=== PATIENT | female | born 1995 | race African-American/Black ===

== ENCOUNTER 2018-09-18 21:17 | Emergency (ER) | payer OTHER ==
[~2018-09-18] VITALS: Ht 162.6 cm; Wt 81.7 kg
[~2018-09-18 21:17] MED LIST: IBUPROFEN 800800 MG PO; NAPROSYN500 MG PO; NOHOMEMEDICATIONS
[2018-09-18 22:03] LABS: INFLUENZA A ANTIGEN None Detected (None Detect); INFLUENZA B ANTIGEN None Detected (None Detect)
[2018-09-18] MEDS ORDERED: AUGMENTIN 875-1 EACH PO (22:15)
[2018-09-18 22:25] VITALS: BP 133/77
== END 2018-09-18 22:25 | disposition home or self-care (01) ==
LOC: M.ERS 21:17
PROVIDERS: Physician Assistant
DX: J03.90 Acute tonsillitis, unspecified (principal)